=== PATIENT | male | born 1950 | race African-American/Black ===

== ENCOUNTER → 2016-10-25 | Emergency (ER) | payer BC, OTHER ==
[~2016-10-25] VITALS: Ht 177.8 cm; Wt 80.7 kg
[~2016-10-25] MED LIST: AMLODIPINE BESY10 MG ORAL; LOSARTAN POTASS50 MG ORAL
[2016-10-25 19:41] VITALS: BP 145/89
[2016-10-25 20:18] LABS: BASOPHILS % (AUTO) 2.1 % (0.0-2.0); EOSINOPHILS % (AUTO) 2.2 % (0.0-3.0); LYMPHOCYTES % (AUTO) 23.5 % (20.0-45.0); MEAN CORPUSCULAR HEMOGLOBIN 27.4 PG (27.0-31.0); MEAN CORPUSCULAR HGB CONC 31.2 G/DL (32.0-36.0); MEAN CORPUSCULAR VOLUME 88 FL (80-99); MEAN PLATELET VOLUME 5.8 FL (6.5-10.1); MONOCYTES % (AUTO) 8.1 % (1.0-10.0); PLATELET COUNT 299 K/UL (150-450); RED BLOOD COUNT 5.47 M/UL (4.70-6.10); RED CELL DISTRIBUTION WIDTH 12.4 % (11.6-14.8); WHITE BLOOD COUNT 6.6 K/UL (4.8-10.8)
[2016-10-25 20:35] LABS: TROPONIN I < 0.30 ng/mL (<=0.30)
[2016-10-25 20:37] LABS: ALANINE AMINOTRANSFERASE 15 U/L (3-41); ANION GAP 17 (5-15); ASPARTATE AMINO TRANSFERASE 21 U/L (5-40); CALCIUM 9.9 mg/dL (8.6-10.2); CARBON DIOXIDE 25 mEQ/L (20-30); CHLORIDE 100 mEQ/L (98-107); CREATININE 1.3 mg/dL (0.7-1.2); GLOMERULAR FILTRATION RATE > 60 mL/min (>60); HEMOLYSIS 9; POTASSIUM 4.5 mEQ/L (3.4-4.9); SODIUM 142 mEQ/L (135-145); TOTAL PROTEIN 7.2 g/dL (6.6-8.7)
[2016-10-25 20:48] LABS: CKMB 3.2 ng/mL (< 6.7)
--- NOTE | 2016-10-25 22:12 | Emergency Room Report ---
History of Present Illness General Chief Complaint: General Complaint Source: Patient Present Illness HPI 65-year-old male presents ED for evaluation of shortness of breath. States that today while walking up the steps and felt short of breath. States symptoms immediately resolved. Patient denies any shortness of breath at this time. Should be checked out. Notes history of hypertension per states he is compliant with his medications. Denies any chest pain. No other aggravating or relieving factors. Denies any other associated symptom Patient History Past Medical History: HTN Past Surgical History: none Pertinent Family History: none Social History: Denies: alcohol use, drug use, smoking Immunizations: UTD Reviewed Nursing Documentation: PMH: Agreed, PSxH: Agreed Nursing Documentation-PMH Past Medical History: No History, Except For Hx Hypertension: Yes Review of Systems All Other Systems: negative except mentioned in HPI Physical Exam Vital Signs Date Time Temp Pulse Resp B/P Pulse Ox O2 Delivery O2 Flow Rate FiO2 10/25/16 18:43 97.9 78 14 145/89 99 Room Air Sp02 EP Interpretation: reviewed, normal General Appearance: no apparent distress, alert, GCS 15, non-toxic Head: normocephalic, atraumatic Eyes: bilateral eye PERRL, bilateral eye normal inspection ENT: hearing grossly normal, normal pharynx, no angioedema, normal voice Neck: full range of motion, supple/symm/no masses Respiratory: chest non-tender, lungs clear, normal breath sounds, speaking full sentences Cardiovascular #1: regular rate, rhythm, no edema Cardiovascular #2: 2+ carotid (R), 2+ carotid (L), 2+ radial (R), 2+ radial (L) , 2+ dorsalis pedis (R), 2+ dorsalis pedis (L) Gastrointestinal: normal bowel sounds, non tender, soft, non-distended, no guarding, no rebound Rectal: deferred Genitourinary: normal inspection, no CVA tenderness Musculoskeletal: back normal, gait/station normal, normal range of motion, non- tender Neurologic: alert, oriented x3, responsive, motor strength/tone normal, sensory intact, speech normal Psychiatric: judgement/insight normal, memory normal, mood/affect normal, no suicidal/homicidal ideation Reflexes: 3+ bicep (R), 3+ bicep (L), 3+ tricep (R), 3+ tricep (L), 3+ knee (R) , 3+ knee (L) Skin: normal color, no rash, warm/dry, well hydrated Lymphatic: no adenopathy Medical Decision Making Diagnostic Impression: Primary Impression: Dyspnea Qualified Codes: R06.09 - Other forms of dyspnea ER Course Hospital Course 65-year-old M presents ED complaining of episode of shortness of breath. no SOB now Differential diagnoses include: Rib fracture, [place]/unstable angina, contusion, muscle strain Clinical course Patient placed on stretcher. After initial history and physical I ordered labs , EKG, chest x-ray. labs reviewed- all electrolytes normal, troponins negative, no leukocytosis, hemoglobin/hematocrit stable, BNP ok EKG - no ischemic changes, NSR Chest x-ray-no cardiomegaly, no rib fracture, no pneumothorax, no acute process per HEART score, patient is at low risk for acute event given lack of risk factors. Patient can be safely discharged to home pending outpatient followup. I. I feel this is a highly complex case requiring extensive working including EKG/Rhythm strip, Xray/CT/US, Blood/urine lab work, repeat exams while in ED, and administration of strong opiates/narcotics for pain control, admission to hospital or close patient follow up. Diagnosis - dyspnea Stable and discharged to home. Instructed to followup with PMD. Return to ED if symptoms recur or worsen Labs Test 10/25/16 19:41 White Blood Count 6.6 K/UL (4.8-10.8) Red Blood Count 5.47 M/UL (4.70-6.10) Hemoglobin 15.0 G/DL (14.2-18.0) Hematocrit 48.0 % (42.0-52.0) Mean Corpuscular Volume 88 FL (80-99) Mean Corpuscular Hemoglobin 27.4 PG (27.0-31.0) Mean Corpuscular Hemoglobin Concent 31.2 G/DL (32.0-36.0) Red Cell Distribution Width 12.4 % (11.6-14.8) Platelet Count 299 K/UL (150-450) Mean Platelet Volume 5.8 FL (6.5-10.1) Neutrophils (%) (Auto) 64.0 % (45.0-75.0) Lymphocytes (%) (Auto) 23.5 % (20.0-45.0) Monocytes (%) (Auto) 8.1 % (1.0-10.0) Eosinophils (%) (Auto) 2.2 % (0.0-3.0) Basophils (%) (Auto) 2.1 % (0.0-2.0) Sodium Level 142 mEQ/L (135-145) Potassium Level 4.5 mEQ/L (3.4-4.9) Chloride Level 100 mEQ/L (98-107) Carbon Dioxide Level 25 mEQ/L (20-30) Anion Gap 17 (5-15) Blood Urea Nitrogen 16 mg/dL (7-23) Creatinine 1.3 mg/dL (0.7-1.2) Estimat Glomerular Filtration Rate > 60 mL/min (>60) Glucose Level 81 mg/dL (74-106) Calcium Level 9.9 mg/dL (8.6-10.2) Total Bilirubin 0.2 mg/dL (0.0-1.2) Aspartate Amino Transf (AST/SGOT) 21 U/L (5-40) Alanine Aminotransferase (ALT/SGPT) 15 U/L (3-41) Alkaline Phosphatase 54 U/L (40-129) Total Creatine Kinase 327 U/L (38-174) Creatine Kinase MB 3.2 ng/mL (< 6.7) Creatine Kinase MB Relative Index 0.9 Troponin I < 0.30 ng/mL (<=0.30) Pro-B-Type Natriuretic Peptide 16 pg/mL (0-125) Total Protein 7.2 g/dL (6.6-8.7) Albumin 4.8 g/dL (3.5-5.2) Globulin 2.4 g/dL Albumin/Globulin Ratio 2.0 (1.0-2.7) EKG Diagnostic Results Rate: normal Rhythm: NSR ST Segments: no acute changes ASA given to the pt in ED: No Rhythm Strip Diag. Results EP Interpretation: yes Rhythm: NSR, no PVC's, no ectopy Chest X-Ray Diagnostic Results EP Interpretation: Yes Findings: no consolidation, no effusion, no pneumothorax, no acute cardiopulmonary disease Number of Views: 1 Last Vital Signs Date Time Temp Pulse Resp B/P Pulse Ox O2 Delivery O2 Flow Rate FiO2 10/25/16 19:41 97.9 78 14 145/89 99 Room Air Status: improved Disposition: HOME, SELF-CARE Condition: Stable Patient Instructions: Shortness of Breath, [id number] NAVI KHAN M.D. Oct 25, 2016 22:12
--- NOTE | 2016-10-26 12:55 | Diagnostic Imaging Report ---
Indication: Ruchi of breath Technique: Single portable AP view of the chest. Findings: Comparison: None. Mild crowding of bronchovascular markings right lung base. The bones and extra pulmonary soft tissues, cardiomediastinal silhouette, pulmonary vasculature and parenchyma, and pleural surfaces are otherwise unremarkable. IMPRESSION: Probable compressive changes in right lung base. Upright PA and lateral chest radiographs with better inspiratory effort and optimal technique recommended for more complete evaluation. Otherwise negative.
--- NOTE | 2016-10-28 16:10 | Cardiology Report ---
APPROVED REPORT EKG Measurement Heart [id number] Sinus rhythm with 1st degree AV block Cannot rule out Anterior infarct, age undetermined Abnormal ECG
== END | disposition home or self-care (01) ==
LOC: EMR 18:59
DX: R06.00 Dyspnea, unspecified (principal); I10 Essential (primary) hypertension
CPT/HCPCS: 36415; 71010; 80053; 82550; 82553; 83880; 84484; 85025; 93005; 99283